=== PATIENT | female | born 1990 | race Caucasian/White ===

== ENCOUNTER 2018-03-16 20:27 | Emergency (ER) | payer OTHER ==
[2018-03-16] MEDS ORDERED: LIDOCAINE 1% (MDV) 10 ML INJ INJ (22:16)
[2018-03-16] MEDS: LIDOCAINE 1% (MDV) 20 ML INJ INJ (23:19)
[2018-03-16] MEDS: HYDROCODONE/APAP (5/325) TAB PO (23:27)
== END 2018-03-17 01:00 | disposition home or self-care (01) ==
LOC: FTE 03-17 01:00
DX: S01.511A Laceration without foreign body of lip, initial encounter (principal); Y04.8XXA Assault by other bodily force, initial encounter
CPT/HCPCS: 12011; 70486; 72125; 99284-25

== ENCOUNTER 2018-03-18 11:47 | Emergency (ER) | payer MEDICAID | END 2018-03-18 13:28 | disposition home or self-care (01) | LOC: FTE 11:47 | DX: Z48.01 Encounter for change or removal of surgical wound dressing (principal) | CPT/HCPCS: 99281; Z7502 ==

== ENCOUNTER 2018-11-05 05:33 | Emergency (ER) | payer MEDICAID, OTHER ==
[2018-11-05] MEDS: ACETAMINOPHEN 325 MG TAB PO (06:19)
== END 2018-11-05 06:35 | disposition home or self-care (01) ==
LOC: FTE 05:33
DX: S01.01XA Laceration without foreign body of scalp, initial encounter (principal); W01.190A Fall on same level from slipping, tripping and stumbling with subsequent striking against furniture, initial encounter; Y92.9 Unspecified place or not applicable
CPT/HCPCS: 12001; 99283-25